=== PATIENT | male | born 1985 | race Caucasian/White ===

== ENCOUNTER 2018-01-05 00:19 | Emergency (ER) | payer MEDICAID ==
[~2018-01-05] VITALS: Ht 177.8 cm; Wt 120.0 kg
[~2018-01-05 00:19] MED LIST: GUAI120018 PO; HYDR-569 PO; HYDR25TA4 PO
[2018-01-05 00:25] VITALS: BP 140/97
[2018-01-05] MEDS ORDERED: ondansetron 4mg rapidly disintigrating tab PO ONE (00:50)
[2018-01-05] MEDS ORDERED: ketorolac trometh inj. 60 MG/2 ML VIAL IM ONE (00:50)
[2018-01-05] MEDS ORDERED: HYDROcodone/acetaminophen 10/325mg tab PO ONE (00:50)
[2018-01-05] MEDS ORDERED: HYDR-3965 PO (00:56)
[2018-01-05] MEDS ORDERED: IBUP-1986 PO (00:56)
== END 2018-01-05 01:15 | disposition home or self-care (01) ==
LOC: ER 00:19
DX: M25.562 Pain in left knee (principal); I10 Essential (primary) hypertension; J45.909 Unspecified asthma, uncomplicated; Z86.14 Personal history of Methicillin resistant Staphylococcus aureus infection; Z60.2 Problems related to living alone; Z88.8 Allergy status to other drugs, medicaments and biological substances; Z79.899 Other long term (current) drug therapy
CPT/HCPCS: 29505; 73564; 96372; 99284; J1885

== ENCOUNTER 2018-01-16 10:32 | Outpatient (CLI) | payer MEDICAID ==
[2018-01-16 10:31] VITALS: BP 161/110
[~2018-01-16 10:32] MED LIST changes: +HYDR-3965 PO; +HYDR-4383 PO; -HYDR-569 PO; +IBUP-1986 PO
== END 2018-01-16 11:03 | disposition home or self-care (01) ==
LOC: ORTHO 10:32
PROVIDERS: ATTEND Nurse Practitioner Family
DX: S89.92XA Unspecified injury of left lower leg, initial encounter (principal); S83.502A Sprain of unspecified cruciate ligament of left knee, initial encounter; S83.422A Sprain of lateral collateral ligament of left knee, initial encounter; Z60.2 Problems related to living alone; Z88.8 Allergy status to other drugs, medicaments and biological substances; X58.XXXA Exposure to other specified factors, initial encounter; Y93.89 Activity, other specified; Y92.89 Other specified places as the place of occurrence of the external cause; Y99.8 Other external cause status
CPT/HCPCS: 99213

== ENCOUNTER 2018-02-06 13:06 | Outpatient (CLI) | payer MEDICAID ==
[2018-02-06 13:09] VITALS: BP 143/99
== END 2018-02-06 13:45 | disposition home or self-care (01) ==
LOC: ORTHO 13:06
PROVIDERS: ATTEND Nurse Practitioner Family
DX: S83.512D Sprain of anterior cruciate ligament of left knee, subsequent encounter (principal); S83.422D Sprain of lateral collateral ligament of left knee, subsequent encounter; S89.92XD Unspecified injury of left lower leg, subsequent encounter; F17.210 Nicotine dependence, cigarettes, uncomplicated; I10 Essential (primary) hypertension; Z88.5 Allergy status to narcotic agent; Z60.2 Problems related to living alone; W17.89XD Other fall from one level to another, subsequent encounter
CPT/HCPCS: 99213

== ENCOUNTER 2018-03-20 10:50 | Outpatient (CLI) | payer MEDICAID ==
[~2018-03-20 10:50] MED LIST changes: -HYDR-3965 PO
== END 2018-03-20 23:59 | disposition home or self-care (01) ==
LOC: RAD 10:50
PROVIDERS: ATTEND Nurse Practitioner Family
DX: S83.512D Sprain of anterior cruciate ligament of left knee, subsequent encounter (principal); S80.02XD Contusion of left knee, subsequent encounter; S83.232D Complex tear of medial meniscus, current injury, left knee, subsequent encounter; S83.272D Complex tear of lateral meniscus, current injury, left knee, subsequent encounter; M71.22 Synovial cyst of popliteal space [Baker], left knee; M25.462 Effusion, left knee; I10 Essential (primary) hypertension; E11.40 Type 2 diabetes mellitus with diabetic neuropathy, unspecified; Z87.891 Personal history of nicotine dependence; Z88.8 Allergy status to other drugs, medicaments and biological substances; X58.XXXD Exposure to other specified factors, subsequent encounter
CPT/HCPCS: 73721

== ENCOUNTER 2018-04-25 09:41 | Outpatient (CLI) | payer MEDICAID ==
[~2018-04-25] VITALS: Ht 177.8 cm; Wt 117.0 kg
[2018-04-25 09:33] VITALS: BP 161/95
[2018-04-25 10:39] VITALS: BP 161/95
== END 2018-04-25 10:49 | disposition home or self-care (01) ==
LOC: ORTHO 09:41
PROVIDERS: ATTEND Nurse Practitioner Family
DX: S83.512D Sprain of anterior cruciate ligament of left knee, subsequent encounter (principal); S83.412D Sprain of medial collateral ligament of left knee, subsequent encounter; S83.8X2D Sprain of other specified parts of left knee, subsequent encounter; S83.232D Complex tear of medial meniscus, current injury, left knee, subsequent encounter; S83.272D Complex tear of lateral meniscus, current injury, left knee, subsequent encounter; M25.462 Effusion, left knee; I10 Essential (primary) hypertension; E11.9 Type 2 diabetes mellitus without complications; Z88.8 Allergy status to other drugs, medicaments and biological substances; X58.XXXD Exposure to other specified factors, subsequent encounter
CPT/HCPCS: 99215

== ENCOUNTER 2018-05-03 12:26 | Day surgery (SDC) | payer MEDICAID ==
[2018-05-01 15:09] LABS: BASOPHILS % (AUTO) 0.4 % (0-1); EOSINOPHILS # (AUTO) 0.2 X10'3 (0-0.9); EOSINOPHILS % (AUTO) 1.6 % (0-6); LYMPHOCYTES # (AUTO) 2.8 X10'3 (1.1-4.8); LYMPHOCYTES % (AUTO) 29.4 % (21-51); MEAN CORPUSCULAR HEMOGLOBIN 29.9 PG (27.0-31.0); MEAN CORPUSCULAR HGB CONC 34.2 % (33.0-36.5); MEAN CORPUSCULAR VOLUME 87.3 FL (78-98); MEAN PLATELET VOLUME 9.6 FL (7.4-10.4); MONOCYTES # (AUTO) 0.6 X10'3 (0-0.9); MONOCYTES % (AUTO) 6.8 % (2-12); NEUTROPHILS # (AUTO) 5.8 X10'3 (1.8-7.7); NEUTROPHILS % (AUTO) 61.8 % (42-75); PRE OP HEMATOCRIT 44.8 % (42.0-52.0); PRE OP HEMOGLOBIN 15.4 g/dL (14.0-17.9); PRE OP PLATELET COUNT 280 X10'3 (140-440); RED BLOOD COUNT 5.14 X10'6 (4.70-6.10); RED CELL DISTRIBUTION WIDTH 13.6 % (11.5-14.5)
[2018-05-01 15:23] LABS: ALBUMIN 3.8 G/DL (3.4-5.0); ALBUMIN/GLOBULIN RATIO 0.8 (1.1-1.5); ALKALINE PHOSPHATASE 71 IU/L (46-116); BLOOD UREA NITROGEN 18 MG/DL (7-18); BUN/CREATININE RATIO 20.9 (5.4-32.0); CHLORIDE 102 MMOL/L (99-107); CREATININE 0.86 MG/DL (0.60-1.10); PRE OP ALT 39 U/L (30-65); PRE OP ANION GAP 12 (8-16); PRE OP BILIRUB, TOTAL 0.2 MG/DL (0.0-1.0); PRE OP SODIUM 140 MMOL/L (135-145); TOTAL CARBON DIOXIDE 26.2 MMOL/L (24-32); TOTAL PROTEIN 8.3 G/DL (6.4-8.2); eGFR > 90 ML/MIN
[2018-05-01 15:24] LABS: PRE OP GLUCOSE 105 MG/DL (70-104); PRE OP POTASSIUM 4.1 MMOL/L (3.4-5.1)
[2018-05-01 15:34] LABS: PRE OP AST 16 U/L (10-37)
[~2018-05-03] VITALS: Ht 177.8 cm; Wt 124.0 kg
[2018-05-03] VITALS (8 sets, daily range): BP systolic 132–181; BP diastolic 61–95
[~2018-05-03 12:26] MED LIST changes: -GUAI120018 PO; -HYDR-4383 PO; +HYDR12.5 PO; -HYDR25TA4 PO; -IBUP-1986 PO; +cefazolin/dext.iso 2gm/100 ML IV ONE; +famotidine 20mg tablet PO ONE; +ringers solution, lacted 1,000 ML IV SCH; +vancomycin inj 1,500 MG in normal saline 300ml IV soln IV ONE
[2018-05-03] MEDS ORDERED: epiNEPHrine 1 mg/ml inj ONE ×2 (12:28→13:57)
[2018-05-03] MEDS ORDERED: Thrombin (Bovine) 5,000 unit vial TP ONE (13:58)
[2018-05-03] MEDS ORDERED: ceFAZolin 1000mg inj ONE (13:58)
[2018-05-03] MEDS ORDERED: ROPIVAcaine 0.5% (5mg/ml) 30ml vial ONE ×2 (13:58→14:50)
[2018-05-03] MEDS ORDERED: gelatin sponge, absorbable (Gelfoam 100) sponge TP ONE (13:59)
[2018-05-03] MEDS ORDERED: ringers solution, lacted 1,000 ML IV SCH ×2 (14:07→16:06)
[2018-05-03] MEDS ORDERED: meperidine/PF 25mg/ml syringe IV PRN ×6 (14:10→16:10)
[2018-05-03] MEDS ORDERED: proCHLORperazine 10 MG/2 ml inj IV PRN ×2 (14:10→16:10)
[2018-05-03] MEDS ORDERED: ondansetron/PF 4mg/2ml inj IV PRN ×2 (14:10→16:10)
[2018-05-03] MEDS ORDERED: morphine 4 MG/ML inj SYRINge IV PRN ×4 (14:10→16:10)
[2018-05-03] MEDS ORDERED: fentaNYL /PF 50mcg/ml 5ml ampule ONE (14:46)
[2018-05-03] MEDS ORDERED: MIDAZolam 5mg/5ml vial ONE (14:46)
[2018-05-03] MEDS ORDERED: cloNIDine hcl/PF 100mcg/ml inj ONE (14:50)
[2018-05-03] MEDS ORDERED: sevoflurane 250ml liquid IH ONE (15:07)
[2018-05-03] MEDS ORDERED: propofol inj 20 ML IV ONE (17:52)
--- NOTE | 2018-05-03 17:54 | NUR ---
Received from OR via [facility] , accompanied by Anesthesiologist DEBORAH and report given by Anesthesiolgist. PATIENT WITH 20G PIV IN RIGHT UE RUNNING LR AT 100. LEFT KNEE JUDE BANDAGES ARE CDI. CALOS BRACE ON AND WITH + DP TO LEFT FOOT,. VSS Addendum: 05/03/18 at 1804 by Willi Medrano RN, RN Amended: Links added.
--- NOTE | 2018-05-03 18:54 | NUR ---
ALL DC CRITERIA HAS BEEN MET. CALOS ON LEFT LE AND DRESSING IS CDI. PAIN WELL CONTROLLED. CRUTCHES PROVIDED. IV OUT WITHOUT COMPLICATIONS. NAUSEA RESOLVED. ALL DC INSTRUCTIONS COVERED AND QUESTIONS ANSWERED, OUT VIA WHEELCHAIR WHERE HE PIVOTED INTO FRONT PASSENGER SEAT. Addendum: 05/03/18 at 191 by Willi Medrano RN, RN Amended: Links added.
== END 2018-05-03 18:54 | disposition home or self-care (01) ==
LOC: PAS 12:26
PROVIDERS: ATTEND Orthopaedic Surgery
DX: S83.512A Sprain of anterior cruciate ligament of left knee, initial encounter (principal); S83.242A Other tear of medial meniscus, current injury, left knee, initial encounter; I10 Essential (primary) hypertension; G89.29 Other chronic pain; E66.9 Obesity, unspecified; F10.10 Alcohol abuse, uncomplicated; F15.11 Other stimulant abuse, in remission; Z86.14 Personal history of Methicillin resistant Staphylococcus aureus infection; Z68.39 Body mass index [BMI] 39.0-39.9, adult; Z90.89 Acquired absence of other organs; Z87.891 Personal history of nicotine dependence; Z88.5 Allergy status to narcotic agent; Z88.8 Allergy status to other drugs, medicaments and biological substances; Z79.1 Long term (current) use of non-steroidal anti-inflammatories (NSAID); Z79.891 Long term (current) use of opiate analgesic; Z98.890 Other specified postprocedural states; Z79.899 Other long term (current) drug therapy; Z82.49 Family history of ischemic heart disease and other diseases of the circulatory system; Z83.6 Family history of other diseases of the respiratory system; Z83.3 Family history of diabetes mellitus; X58.XXXA Exposure to other specified factors, initial encounter; Y93.39 Activity, other involving climbing, rappelling and jumping off; Y92.89 Other specified places as the place of occurrence of the external cause; Y99.8 Other external cause status
CPT/HCPCS: 29881; 29888; 36415; 64447; 71046; 80053; 82948; 85025; 93005; A6449; C1713; C1776; J0171; J0690; J0735; J2175; J2250; J2270; J2405; J2704; J3010; J3370; L1832; A6446; A7000; J2795; J7030; J7120

== ENCOUNTER 2018-05-15 10:55 | Outpatient (CLI) | payer MEDICAID ==
[~2018-05-15 10:55] MED LIST changes: -cefazolin/dext.iso 2gm/100 ML IV ONE; -famotidine 20mg tablet PO ONE; -ringers solution, lacted 1,000 ML IV SCH; -vancomycin inj 1,500 MG in normal saline 300ml IV soln IV ONE
[2018-05-15 10:59] VITALS: BP 149/106
== END 2018-05-15 11:32 | disposition home or self-care (01) ==
LOC: ORTHO 10:55
PROVIDERS: ATTEND Nurse Practitioner Family
DX: S83.512D Sprain of anterior cruciate ligament of left knee, subsequent encounter (principal)

== ENCOUNTER 2018-05-31 09:58 | Outpatient (CLI) | payer MEDICAID ==
[2018-05-31 10:01] VITALS: BP 156/100
== END 2018-05-31 10:42 | disposition home or self-care (01) ==
LOC: ORTHO 09:58
PROVIDERS: ATTEND Nurse Practitioner Family
DX: S83.512D Sprain of anterior cruciate ligament of left knee, subsequent encounter (principal); I10 Essential (primary) hypertension; G89.29 Other chronic pain; F17.200 Nicotine dependence, unspecified, uncomplicated; M54.9 Dorsalgia, unspecified; Z88.6 Allergy status to analgesic agent; Z88.8 Allergy status to other drugs, medicaments and biological substances; Z60.2 Problems related to living alone; Z72.89 Other problems related to lifestyle; W17.89XD Other fall from one level to another, subsequent encounter
CPT/HCPCS: 99213

== ENCOUNTER 2018-07-08 22:10 | Emergency (ER) | payer MEDICAID ==
[~2018-07-08] VITALS: Ht 177.8 cm; Wt 134.0 kg
[2018-07-08] MEDS ORDERED: proparacaine 0.5% ophthalmic drops 15ml EACHEYE ONE (22:50)
[2018-07-09 01:04] VITALS: BP 166/109
[2018-07-09] MEDS ORDERED: ERYT1OIN6 RIGHTEYE (01:32)
[2018-07-09] MEDS ORDERED: HYDR-3965 PO (09:21)
== END 2018-07-09 02:21 | disposition left against medical advice (07) ==
LOC: ER 22:10
DX: T15.91XA Foreign body on external eye, part unspecified, right eye, initial encounter (principal); I10 Essential (primary) hypertension; G89.29 Other chronic pain; Z86.14 Personal history of Methicillin resistant Staphylococcus aureus infection; Z98.890 Other specified postprocedural states; Z60.2 Problems related to living alone; Z88.8 Allergy status to other drugs, medicaments and biological substances; Z79.899 Other long term (current) drug therapy; W45.8XXA Other foreign body or object entering through skin, initial encounter; Y93.89 Activity, other specified; Y92.89 Other specified places as the place of occurrence of the external cause; Y99.8 Other external cause status
CPT/HCPCS: 99283

== ENCOUNTER 2018-07-09 08:39 | Emergency (ER) | payer MEDICAID ==
[~2018-07-09] VITALS: Ht 177.8 cm; Wt 133.2 kg
[~2018-07-09 08:39] MED LIST changes: +ERYT1OIN6 RIGHTEYE
[2018-07-09] MEDS ORDERED: proparacaine 0.5% ophthalmic drops 15ml EACHEYE ONE (08:50)
[2018-07-09] MEDS ORDERED: proparacaine 0.5% ophthalmic drops 15ml RIGHTEYE ONE (09:00)
[2018-07-09] MEDS ORDERED: HYDR-3965 PO (09:21)
[2018-07-09 09:29] VITALS: BP 148/103
== END 2018-07-09 09:32 | disposition home or self-care (01) ==
LOC: ER 08:40
DX: T15.01XA Foreign body in cornea, right eye, initial encounter (principal); I10 Essential (primary) hypertension; G89.29 Other chronic pain; E53.8 Deficiency of other specified B group vitamins; Z86.14 Personal history of Methicillin resistant Staphylococcus aureus infection; Z87.891 Personal history of nicotine dependence; Z98.890 Other specified postprocedural states; Z60.2 Problems related to living alone; Z88.8 Allergy status to other drugs, medicaments and biological substances; Z79.899 Other long term (current) drug therapy; W39.XXXA Discharge of firework, initial encounter; Y93.89 Activity, other specified; Y92.89 Other specified places as the place of occurrence of the external cause; Y99.8 Other external cause status
CPT/HCPCS: 65220; 99284

== ENCOUNTER 2018-08-17 14:50 | Outpatient (CLI) | payer MEDICAID ==
[~2018-08-17 14:50] MED LIST changes: -ERYT1OIN6 RIGHTEYE
== END 2018-08-17 14:51 | disposition home or self-care (01) ==
LOC: ORTHO 14:50
PROVIDERS: ATTEND Orthopaedic Surgery
DX: M79.89 Other specified soft tissue disorders (principal); I10 Essential (primary) hypertension; Z98.890 Other specified postprocedural states
CPT/HCPCS: 99213

== ENCOUNTER 2020-11-25 12:54 | Emergency (ER) | payer MEDICAID, OTHER ==
[~2020-11-25] VITALS: Ht 175.3 cm; Wt 136.6 kg
[2020-11-25 13:03] VITALS: BP 171/113
[2020-11-25 13:19] LABS: BASOPHILS % (AUTO) 0.5 % (0-1); EOSINOPHILS # (AUTO) 0.1 X10'3 (0-0.9); HEMATOCRIT 42.9 % (42.0-52.0); HEMOGLOBIN 14.4 g/dl (14.0-17.9); LYMPHOCYTES # (AUTO) 2.6 X10'3 (1.1-4.8); LYMPHOCYTES % (AUTO) 26.3 % (21-51); MEAN CORPUSCULAR HEMOGLOBIN 29.9 PG (27.0-31.0); MEAN CORPUSCULAR HGB CONC 33.6 g/dL (33.0-36.5); MEAN CORPUSCULAR VOLUME 89.1 FL (78-98); MONOCYTES # (AUTO) 0.6 X10'3 (0-0.9); MONOCYTES % (AUTO) 6.5 % (2-12); NEUTROPHILS # (AUTO) 6.5 X10'3 (1.8-7.7); NEUTROPHILS % (AUTO) 65.7 % (42-75); PLATELET COUNT 276 X10'3 (140-440); RED BLOOD COUNT 4.81 X10'6 (4.70-6.10); RED CELL DISTRIBUTION WIDTH 13.3 % (11.5-14.5); WHITE BLOOD COUNT 9.9 X10'3 (4.5-11.0)
[2020-11-25 13:38] LABS: GLUCOSE 90 MG/DL (70-104); POTASSIUM 4.4 MMOL/L (3.5-5.1); SODIUM 143 MMOL/L (135-145)
[2020-11-25 13:39] LABS: ALANINE AMINOTRANSFERASE 54 U/L (12-78); ALBUMIN 3.7 G/DL (3.4-5.0); ALBUMIN/GLOBULIN RATIO 0.9 (1.1-1.5); ALKALINE PHOSPHATASE 63 IU/L (46-116); ANION GAP 8 (8-16); ASPARTATE AMINO TRANSFERASE 24 U/L (10-37); BILIRUBIN,TOTAL 0.2 MG/DL (0.1-1.0); BLOOD UREA NITROGEN 10 MG/DL (7-18); CALCIUM 8.7 MG/DL (8.5-10.1); CHLORIDE 108 MMOL/L (99-107); CREATININE 0.91 MG/DL (0.60-1.10); TOTAL CARBON DIOXIDE 26.6 MMOL/L (24-32); TOTAL PROTEIN 7.7 G/DL (6.4-8.2); eGFR > 90 ML/MIN
== END 2020-11-25 17:03 | disposition left against medical advice (07) ==
LOC: ER 12:54
DX: I10 Essential (primary) hypertension (principal); R07.89 Other chest pain; Z53.21 Procedure and treatment not carried out due to patient leaving prior to being seen by health care provider
CPT/HCPCS: 36415; 71045; 80053; 83880; 84484; 85025; 93005

== ENCOUNTER 2022-08-24 19:15 | Emergency (ER) | payer MEDICAID ==
[~2022-08-24] VITALS: Ht 177.8 cm; Wt 159.1 kg
[2022-08-24 19:40] VITALS: BP 201/134
[2022-08-24] MEDS ORDERED: oxyCODONE/APAP 10/325mg tablet PO ONE (21:15)
[2022-08-24] MEDS ORDERED: OXYC-145 PO (21:31)
== END 2022-08-24 21:44 | disposition home or self-care (01) ==
LOC: ER 19:16
DX: S83.91XA Sprain of unspecified site of right knee, initial encounter (principal); I10 Essential (primary) hypertension; Z88.6 Allergy status to analgesic agent; X58.XXXA Exposure to other specified factors, initial encounter; Y93.89 Activity, other specified; Y92.89 Other specified places as the place of occurrence of the external cause; Y99.8 Other external cause status
CPT/HCPCS: 29505; 73564; 99283

== ENCOUNTER 2023-01-25 21:13 | Emergency (ER) | payer MEDICAID ==
[~2023-01-25] VITALS: Ht 177.8 cm; Wt 154.5 kg
[~2023-01-25 21:13] MED LIST changes: +OXYC-145 PO
[2023-01-25 21:15] VITALS: BP 156/122; PULSE 123; RESP 26; O2SAT 98
[2023-01-25 21:29] LABS: BASOPHILS # (AUTO) 0.1 X10'3 (0-0.2); BASOPHILS % (AUTO) 0.6 % (0-1); EOSINOPHILS # (AUTO) 0.2 X10'3 (0-0.9); EOSINOPHILS % (AUTO) 1.1 % (0-6); HEMATOCRIT 43.9 % (42.0-52.0); HEMOGLOBIN 14.9 g/dl (14.0-17.9); LYMPHOCYTES # (AUTO) 5.3 X10'3 (1.1-4.8); LYMPHOCYTES % (AUTO) 34.9 % (21-51); MEAN CORPUSCULAR HEMOGLOBIN 30.5 PG (27.0-31.0); MEAN CORPUSCULAR VOLUME 89.8 FL (78-98); MEAN PLATELET VOLUME 9.3 FL (7.4-10.4); MONOCYTES # (AUTO) 0.8 X10'3 (0-0.9); MONOCYTES % (AUTO) 5.5 % (2-12); NEUTROPHILS # (AUTO) 8.7 X10'3 (1.8-7.7); NEUTROPHILS % (AUTO) 57.9 % (42-75); PLATELET COUNT 276 X10'3 (140-440); RED BLOOD COUNT 4.89 X10'6 (4.70-6.10); RED CELL DISTRIBUTION WIDTH 15.3 % (11.5-14.5); WHITE BLOOD COUNT 15.1 X10'3 (4.5-11.0)
[2023-01-25 21:44] LABS: ALANINE AMINOTRANSFERASE 86 U/L (12-78); ALBUMIN 3.9 G/DL (3.4-5.0); ALBUMIN/GLOBULIN RATIO 0.8 (1.1-1.5); ALKALINE PHOSPHATASE 76 IU/L (46-116); ANION GAP 14 (8-16); ASPARTATE AMINO TRANSFERASE 48 U/L (10-37); BILIRUBIN,TOTAL 0.3 MG/DL (0.1-1.0); BLOOD UREA NITROGEN 15 MG/DL (7-18); CALCIUM 9.6 MG/DL (8.5-10.1); CHLORIDE 100 MMOL/L (99-107); CREATININE 1.15 MG/DL (0.60-1.10); GLUCOSE 130 MG/DL (70-104); SODIUM 138 MMOL/L (135-145); TOTAL CARBON DIOXIDE 24.1 MMOL/L (24-32); TOTAL PROTEIN 8.5 G/DL (6.4-8.2); eCRCL 90 ML/MIN; eGFR 71 ML/MIN
[2023-01-25 21:51] LABS: PRO BRAIN NATRIURETIC PEPTIDE < 30 PG/ML (0-125)
--- NOTE | 2023-01-25 22:20 | NUR ---
CALLED PATIENT ON PERSONAL PHONE HE WAS NOT ANSWERING IN THE LOBBY. PATIENT STATES, "YEAH, IM NOT COMING BACK." INFORMED PATIENT POTASSIUM IS LOW, PATIENT SAID, "YEAH, IM NOT COMING BACK, THANKS FOR NOTHING." CHARGE NURSE NOTIFIED.
== END 2023-01-25 22:21 | disposition left against medical advice (07) ==
LOC: ER 21:14
DX: R07.89 Other chest pain (principal); Z53.21 Procedure and treatment not carried out due to patient leaving prior to being seen by health care provider
CPT/HCPCS: 36415; 71045; 80053; 83880; 84484; 85025; 93005; 99281

== ENCOUNTER 2024-01-13 12:22 | Outpatient (CLI) | payer OTHER | END 2024-01-13 23:59 | disposition home or self-care (01) | LOC: RAD 12:22 | PROVIDERS: ATTEND Chiropractor | DX: S92.102A Unspecified fracture of left talus, initial encounter for closed fracture (principal); X58.XXXA Exposure to other specified factors, initial encounter; Y93.89 Activity, other specified; Y92.89 Other specified places as the place of occurrence of the external cause; Y99.8 Other external cause status | CPT/HCPCS: 73600 ==